=== PATIENT | male | born 1970 | race Caucasian/White ===

== ENCOUNTER 2020-02-16 18:41 | Emergency (ER) | payer OTHER ==
[~2020-02-16] VITALS: Ht 190.5 cm; Wt 122.5 kg
[2020-02-16 19:19] LABS: ABSOLUTE NEUTROPHILS 3.4 thou/uL (1.4-8.2); BASOPHILS 0.5 % (0.0-2.0); EOSINOPHILS 2.5 % (0.0-3.0); HEMATOCRIT 45.4 % (42.0-52.0); HEMOGLOBIN 16.1 gm/dL (14.0-18.0); LYMPHOCYTES 37.9 % (24.0-44.0); MCH 32.3 pg (26.0-34.0); MCHC 35.4 g/dL (28.0-37.0); MCV 91.2 fL (80.0-100.0); MONOCYTES 5.7 % (1.0-8.0); PLATELET COUNT 180 thou/uL (150-400); POLYS 53.4 % (36.0-66.0); RBC 4.98 mil/uL (4.50-6.00); RDW 13.2 % (10.5-14.5); WBC 6.4 thou/uL (4.0-11.0)
[2020-02-16 19:35] LABS: ANION GAP 14 mmol/L (7-16); BUN 12 mg/dL (7-18); CHLORIDE 102 mmol/L (98-107); CO2 23 mmol/L (21-32); CREATININE 1.5 mg/dL (0.7-1.3); GLUCOSE 95 mg/dL (74-106); POTASSIUM 3.6 mmol/L (3.5-5.1); SODIUM 139 mmol/L (136-145)
[2020-02-16 19:39] LABS: ALBUMIN 4.1 g/dL (3.4-5.0); DIRECT BILIRUBIN 0.2 mg/dL (<0.1-0.2); SGOT 29 U/L (15-37); SGPT 28 U/L (30-65); TOTAL BILIRUBIN 0.7 mg/dL (0.2-1.0); TOTAL PROTEIN 7.3 g/dL (6.4-8.2)
[2020-02-16 20:12] LABS: URINE BILIRUBIN NEGATIVE (Negative); URINE BLOOD NEGATIVE (Negative); URINE CLARITY CLEAR; URINE COLOR YELLOW; URINE GLUCOSE-RANDOM* NEGATIVE (Negative); URINE KETONES NEGATIVE (Negative); URINE LEUKOCYTES-REFLEX NEGATIVE (Negative); URINE NITRITE-REFLEX NEGATIVE (Negative); URINE PROTEIN (DIPSTICK) NEGATIVE (Negative); URINE UROBILINOGEN 0.2 E.U./dl (0.2-1.0)
[2020-02-16 20:19] LABS: AMP/METHAMP Negative (Negative); BARBITURATES Negative (Negative); BENZODIAZEPINES Negative (Negative); COCAINE Negative (Negative); METHADONE Negative (Negative); OPIATES Negative (Negative); PCP Negative (Negative)
[2020-02-17] MEDS ORDERED: ZOLPIDEM TARTRA10 MG PO (03:25)
[2020-02-17] MEDS ORDERED: MIRTAZAPINE15 M2 PO (03:25)
[2020-02-17] MEDS ORDERED: RESTORIL30 MG PO (03:27)
[2020-02-18] MEDS ORDERED: LYRICA25 MG PO (20:22)
--- NOTE | 2020-02-19 07:42 | EKG ---
[facility] [place] [address] ELECTROCARDIOGRAM REPORT Name: CARLA LYLE Room #: REG [facility].#: [id number] Admission: 02/16/20 Attend Phys: Discharge: Date of : 70 Report #: [id number] THIS REPORT FOR: cc: Maribel Ramirez MD, Kerry B. MD Lundgren, Craig H. MD [facility] ~ THIS REPORT FOR: //name// [facility] ED Test Date: 2020-02-16 Test Time: 19:13:26 Pat Name: CARLA LYLE Department: Room: Gender: Portfolio Assistant: [facility] : 1970 Requested By: Aide Evans Order Number: [id number] MD: Martín Lima Measurements Intervals Lohn Rate: 95 P: 70 SD: 178 QRS: 0 QRSD: 90 T: 38 QT: 380 QTc: 478 Interpretive Statements Sinus rhythm Poor R wave progression Consider inferior infarct No previous ECG available for comparison Electronically Signed On 02-19-2020 7:42:10 CDT by Martín Lima [email or web address] <ELECTRONICALLY SIGNED> By: Martín Lima MD, [facility] 02/19/20 0742 12 12 Martín Lima MD, [facility] /EPI
[2020-02-20 20:05] VITALS: BP 175/81
== END 2020-02-20 20:08 | disposition short-term general hospital (02) ==
LOC: ER 18:41
PROVIDERS: Emergency Medicine
DX: T42.6X2A Poisoning by other antiepileptic and sedative-hypnotic drugs, intentional self-harm, initial encounter (principal); T42.4X2A Poisoning by benzodiazepines, intentional self-harm, initial encounter; T46.7X2A Poisoning by peripheral vasodilators, intentional self-harm, initial encounter; R41.82 Altered mental status, unspecified; F13.20 Sedative, hypnotic or anxiolytic dependence, uncomplicated; F32.9 Major depressive disorder, single episode, unspecified; Z91.041 Radiographic dye allergy status; Z88.6 Allergy status to analgesic agent; Y92.9 Unspecified place or not applicable